=== PATIENT | male | born 2000 | race Caucasian/White ===

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

== ENCOUNTER 2022-11-09 14:13 | Emergency (ER) | payer MEDICAID, SELFPAY ==
--- NOTE | 2022-11-09 15:36 | ED_ITS ---
HPI - Back Pain/Injury General Stated Complaint: Back pain Time Seen by Provider: 11/09/22 15:37 Source: patient Mode of arrival: ambulatory Limitations: no limitations History of Present Illness HPI Narrative: 22-year-old male presents to the ER for evaluation of left lower back pain after he fell while playing basketball yesterday. He did not go to work today and states he needs a work note for missing work today. He states the pain is in the left lower back, does not radiate. It is worse with movement. No bruising to his back. No blood in his urine. He has not been taking the medications for pain. MD elicited complaint: back injury Pertinent past history: recent trauma Onset (ago): day(s) (1) Timing: intermittent Severity: moderate Quality: aching Location: left lower back Radiation: none Exacerbating factors: movement Relieving factors: none Context: fall Associated symptoms: denies other symptoms Work related injury: No Related Data Allergies Allergy/AdvReac Type Severity Reaction Status Date / Time No Known Allergies Allergy Verified 11/09/22 15:37 [No Known Allergies*] Review of Systems Review of Systems: Yes all other systems are reviewed and are negative Physical Exam Vital Signs: Appearance: Alert. Oriented X3. No acute distress. HEENT: normal inspection CVS: Normal heart rate and rhythm. Pulses normal. Respiratory: No respiratory distress. Skin: Skin warm and dry. Normal skin color. Normal skin turgor. No rashes. Back: Normal inspection, normal range of motion of the spine. Mild soft tissue tenderness of the middle lumbar area. No spinal tenderness Extremities: Normal inspection x4, no joint swelling, normal range of motion Neuro: Oriented X 3. No motor deficit. No sensory deficit. Medical Decision Making Medical Decision Making MDM Narrative: 22-year-old male presents to the ER for evaluation of left lower back pain after a fall during basketball yesterday. His exam is unremarkable. He is requesting a work note. He would like to back to work tomorrow. We discussed symptomatic care muscular back pain including rest, ice, NSAIDs. Stable for discharge home. Work note provided per request Differential Diagnosis Differential Diagnoses: The differential diagnosis associated with the presentation includes Inflammatory disorders, malignancy, trauma, osteoporosis, nerve root compression, radiculopathy, plexopathy, degenerative disc disease, disc herniation, spinal stenosis, sacroiliac joint dysfunction, facet joint injury, a nd less likely infection?like abscess or diskitis Tests considered The following testing was considered but not selected: Considered x-ray given trauma but he has no midline tenderness. Prescription Management I considered prescription management with: Pain Medication Critical Care Time Critical Care Time Critical Care Time: No Discharge Plan Discharge Clinical Impression: Back pain Patient Disposition: Home, Self-Care Instructions: Acute Low Back Pain (ED) Additional Instructions: Take Tylenol and Motrin as needed for pain. Use ice to the area several times per day to the area If you develop new or worsening symptoms call 911 or come back to the ER for further evaluation. Stand Alone Forms: Work/School Release
[2022-11-09 15:38] VITALS: BP 135/83; PULSE 64; RESP 19; TEMP 36.6; O2SAT 98; BMI 30.8
== END 2022-11-09 15:55 | disposition home or self-care (01) ==
LOC: HO.ED 15:50
PROVIDERS: Emergency Provider Emergency Medicine
DX: M54.50 Low back pain, unspecified (principal)
CPT/HCPCS: 99282

== ENCOUNTER 2023-05-11 04:40 | Emergency (ER) | payer MEDICAID, SELFPAY ==
[2023-05-11 04:55] VITALS: BP 147/68; PULSE 87; RESP 18; TEMP 36.8; O2SAT 98; BMI 32.2
--- NOTE | 2023-05-11 05:27 | ED_ITS ---
HPI - General Adult General Chief complaint: General Medical Stated complaint: cyst/abscess Time Seen by Provider: 05/11/23 05:27 Source: patient Mode of arrival: ambulatory Limitations: no limitations History of Present Illness HPI narrative: Patient no significant past medical history woke up 3 days ago with small redness on the inner part of the right thigh which has gradually increased in size with surrounding erythema and pain no fever no chills Related Data Previous Rx's Medication Instructions Recorded cephalexin 500 mg capsule 500 mg PO QID 10 days #40 caps 05/11/23 doxycycline hyclate 100 mg tablet 100 mg PO BID #20 tabs 05/11/23 ibuprofen 600 mg tablet 600 mg PO Q6H PRN fever or pain 05/11/23 #30 tabs Allergies Allergy/AdvReac Type Severity Reaction Status Date / Time No Known Allergies Allergy Verified 05/11/23 05:01 [No Known Allergies*] Review of Systems 2 Review of Systems: Yes all other systems are reviewed and are negative PMFSH Social History Social History Alcohol intake: never Smoked in Last 30 Days: No Use of substances other than those prescribed or required for medical reasons: No Advance Directives: No Advance Directives Information Provided: No Physical Exam ED Vital Signs: Vital Signs - 24 hr 05/11/23 04:55 05/11/23 06:00 Temperature 98.3 F Pulse Rate 87 63 Respiratory Rate 18 14 Blood Pressure 147/68 H 109/64 Pulse Oximetry 98 100 Oxygen Delivery Method Room Air Room Air BMI result Body Mass Index 32.2 Extrem Upper/lower leg/hip images: 2 1. Small indurated swelling about 2 cm in diameter with surrounding erythema Medications Administered Discontinued Medications Generic Name Dose Route Start Last Admin Trade Name Freq PRN Reason Stop Dose Admin Cephalexin HCl 500 mg 05/11/23 05:36 05/11/23 05:56 Cephalexin 500 Mg Capsule PO 05/11/23 05:37 500 mg ONCE ONE Administration Doxycycline Monohydrate 100 mg 05/11/23 05:36 05/11/23 05:56 Doxycycline Monohydrate 100 Mg Capsule PO 05/11/23 05:37 100 mg ONCE ONE Administration Lidocaine HCl 6 ml 05/11/23 05:36 05/11/23 05:57 Lidocaine Hcl 1 % Mpf 2 Ml Vial INFILTRATI 05/11/23 05:37 6 ml ONCE ONE Administration Procedures Abscess I/D Site: lower extremity Side (if applicable): right Local Anesthetic: lidocaine 1% Amount of anesthesia used (mL): 6 Technique: incised with blade Amount of fluid expressed (mL): 1 Sent for culture/gram staining?: Yes Irrigation: No Packing used?: none Discharge Plan Discharge Clinical Impression: Cellulitis and abscess of leg Patient Disposition: Home, Self-Care Instructions: Abscess Incision and Drainage (DC) Additional Instructions: Local care as advised Take antibiotic as prescribed Report to the ER/PCP if worsening of the redness or swelling Prescriptions: New cephalexin 500 mg capsule 500 mg PO QID 10 Days Qty: 40 0RF ibuprofen 600 mg tablet 600 mg PO Q6H PRN (Reason: fever or pain) Qty: 30 0RF doxycycline hyclate 100 mg tablet 100 mg PO BID Qty: 20 0RF Stand Alone Forms: Work/School Release Interventions: ED Discharge Assessment Last Done: 05/11/23 06:20 Discharge Date/Time: 05/11/23 06:21
[2023-05-11] MEDS: Doxycycline Monohydrate 100 MG CAPSULE PO (05:56)
[2023-05-11] MEDS: cephALEXin 500 MG CAPSULE PO (05:56)
[2023-05-11] MEDS: Lidocaine HCl 1 % MPF 2 ML VIAL 6 ML INFILTRATI (05:57)
[2023-05-11 06:00] VITALS: BP 109/64; PULSE 63; RESP 14; O2SAT 100
== END 2023-05-11 06:21 | disposition home or self-care (01) ==
PROVIDERS: Emergency Provider Internal Medicine
DX: L02.415 Cutaneous abscess of right lower limb (principal); Z79.899 Other long term (current) drug therapy
CPT/HCPCS: 10060; 87070; 87077; 87186; 87205; 99284

== ENCOUNTER 2023-06-18 18:53 | Emergency (ER) | payer MEDICAID, SELFPAY ==
[2023-06-18 19:44] VITALS: BP 129/67; PULSE 78; RESP 18; TEMP 36.6; O2SAT 98; BMI 31.7
--- NOTE | 2023-06-18 22:00 | ED.SKABFB ---
HPI - Skin/Abscess/Foreign Bdy General Chief complaint: Skin/Abscess/Foreign Body Stated complaint: cyst on right leg Time Seen by Provider: 06/18/23 21:34 Source: patient Mode of arrival: ambulatory Limitations: no limitations History of Present Illness HPI narrative: abscess R leg for a couple of days no fevers, n/v/d. complaint: abscess/boil Onset (ago): day(s) (2) Tetanus up to date: yes Location: RLE Severity: moderate Quality: aching, dull and constant Pain Consistency: constant Relieving factors: none Exacerbating factors: palpation Context: other (hx of recent boil) Associated symptoms: denies other symptoms Treatments prior to arrival: none Related Data Previous Rx's Medication Instructions Recorded cephalexin 500 mg capsule 500 mg PO QID 10 days #40 caps 05/11/23 doxycycline hyclate 100 mg tablet 100 mg PO BID #20 tabs 05/11/23 ibuprofen 600 mg tablet 600 mg PO Q6H PRN fever or pain 05/11/23 #30 tabs cephalexin 500 mg capsule 500 mg PO QID 7 days #28 caps 06/18/23 chlorhexidine gluconate 4 % 1 appl topical Q5M 2 doses #473 mL 06/18/23 topical liquid Allergies Allergy/AdvReac Type Severity Reaction Status Date / Time No Known Allergies Allergy Verified 05/11/23 05:01 [No Known Allergies*] Review of Systems Review of Systems: Constitutional : No Fever, No Chills Cardiovascular : No Chest Pain, No SOB Respiratory : No Cough, No Sputum Gastrointestinal : No Nausea, No Vomiting, No Diarrhea, No abdominal Pain Genitourinary : No Dysuria, No Hematuria Musculoskeletal : No joint pain, No Myalgias, No Joint Swelling Skin : No Skin Lesions, positive skin rash Neuro : No Weakness, No Numbness, No Headache All other systems reviewed and are negative PMFSH Past Medical History Attestation statement: The following information was validated with the patient. Source: old records reviewed Onset Date is defined in the Problem List Problems that require an onset date and time if occurred within 24 hrs of arrival to the ED Aortic Dissection and Rupture; Neurologic impairment; Cardiopulmonary Arrest; Endotracheal Intubation; Insertion or Replacement of Mechanical Circulatory Assist Device Medical History Abscess of skin or subcutaneous tissue Social History Social History (Updated 06/18/23 @ 22:14 by Mónica Pyle DO) Alcohol intake: never Patient Tobacco Use Status: Tobacco use Unknown Physical Exam Vital Signs: Vital Signs: Last Vital Signs Temp 97.9 F 06/18/23 19:44 Pulse 78 06/18/23 19:44 Resp 18 06/18/23 19:44 BP 129/67 06/18/23 19:44 Pulse Ox 98 06/18/23 19:44 O2 Del Method Room Air 06/18/23 19:44 BMI result Body Mass Index 31.7 Appearance: Alert. Oriented X3. No acute distress. Eyes: Pupils equal, round and reactive to light. ENT: Pharynx normal. Neck: Normal inspection. Neck supple. CVS: Normal heart rate and rhythm. Pulses normal. Respiratory: No respiratory distress. Breath sounds normal. Abdomen: Soft and nontender. Skin: Skin warm and dry. Normal skin color. Normal skin turgor. Extremities: No lower extremity edema. R thigh small 2cm fluctuance area mild surrounding erythema and edema no extension Neuro: Oriented X 3. No motor deficit. No sensory deficit. Medical Decision Making Medical Decision Making MDM Narrative: 23 yo male no PMH not a diabetic here with small fluctuance abscess R thigh - no systemic symptoms will emmanuel and start on cephalexin and body wash he is going to call and get PCP given recurrence of symptoms Differential Diagnosis Differential Diagnoses: The differential diagnosis associated with the presentation includes abscess, cellulitis Admission/Observation Consideration of admission/observation: Escalation of care including admission/observation considered not toxic, can be managed as outpatient Independent Historian Clinical information obtained from an independent historian. History obtained from or confirmed by: Spouse External Record Review External record reviewed: Inpatient record Prescription Management I considered prescription management with: Antibiotic Procedures Abscess I/D Site: lower extremity Side (if applicable): right Local Anesthetic: lidocaine 1% Amount of anesthesia used (mL): 2 Technique: incised with blade Amount of fluid expressed (mL): 1 Sent for culture/gram staining?: No Irrigation: No Packing used?: none Discharge Plan Discharge Clinical Impression: Abscess of skin or subcutaneous tissue Qualifiers: Site of cutaneous abscess: extremity Site of cutaneous abscess of extremity: lower extremity Laterality: right Qualified Code(s): L02.415 - Cutaneous abscess of right lower limb Patient Disposition: Home, Self-Care Instructions: Abscess (ED), Incision and Drainage (ED) Additional Instructions: monitor wound - change dressing in AM it will ooze and drain some blood. return for worsening swelling, redness, yellow drainage, fevers. On a cephalosporin?antibiotic, softer bowel movements are to be expected. Call your provider if you move your bowels more than 4 times a day, your bowel movements are almost all liquid, or you get a rash.?? Prescriptions: New cephalexin 500 mg capsule 500 mg PO QID 7 Days Qty: 28 0RF chlorhexidine gluconate 4 % liquid 1 appl topical Q5M Qty: 473 0RF No Action cephalexin 500 mg capsule 500 mg PO QID 10 Days Qty: 40 0RF ibuprofen 600 mg tablet 600 mg PO Q6H PRN (Reason: fever or pain) Qty: 30 0RF doxycycline hyclate 100 mg tablet 100 mg PO BID Qty: 20 0RF
== END 2023-06-18 22:10 | disposition home or self-care (01) ==
PROVIDERS: Emergency Provider Emergency Medicine
DX: L02.415 Cutaneous abscess of right lower limb (principal); M79.604 Pain in right leg
CPT/HCPCS: 10060; 99282; 99284

== ENCOUNTER 2023-07-18 10:39 | Emergency (ER) | payer SELFPAY ==
[2023-07-18 10:58] VITALS: BP 121/64; PULSE 73; RESP 18; TEMP 36.4; O2SAT 97; BMI 33.1
--- NOTE | 2023-07-18 12:54 | ED_ITS ---
HPI - Skin/Abscess/Foreign Bdy General Chief complaint: Skin/Abscess/Foreign Body Stated complaint: Cyst on leg Time Seen by Provider: 07/18/23 12:16 Source: patient, RN notes reviewed and old records reviewed Mode of arrival: ambulatory History of Present Illness HPI narrative: 23-year-old male no significant past medical history presenting to the ED complaining of painful red cyst to right groin/internal thigh x3 days. Denies fever/chills, drainage from area. Admits to similar symptoms in the past. MD complaint: abscess/boil Related Data Previous Rx's Medication Instructions Recorded cephalexin 500 mg capsule 500 mg PO QID 10 days #40 caps 05/11/23 doxycycline hyclate 100 mg tablet 100 mg PO BID #20 tabs 05/11/23 ibuprofen 600 mg tablet 600 mg PO Q6H PRN fever or pain 05/11/23 #30 tabs cephalexin 500 mg capsule 500 mg PO QID 7 days #28 caps 06/18/23 chlorhexidine gluconate 4 % 1 appl topical Q5M 2 doses #473 mL 06/18/23 topical liquid cephalexin 500 mg capsule 500 mg PO QID 7 days #28 caps 07/18/23 doxycycline hyclate 100 mg tablet 100 mg PO BID 7 days #14 tabs 07/18/23 Allergies Allergy/AdvReac Type Severity Reaction Status Date / Time No Known Allergies Allergy Verified 05/11/23 05:01 [No Known Allergies*] Review of Systems Review of Systems: Constitutional: No Fever, No Chills ENT/Mouth: No Ear Pain, No Nasal Congestion, No sore throat, No Rhinorrhea, No Swallowing Difficulty Cardiovascular: No Chest Pain, No SOB Respiratory: No Cough Gastrointestinal: No Nausea, No Vomiting, No Abdominal pain Musculoskeletal: No joint pain, No Myalgias, No Joint Swelling Skin: +Skin Lesions, No rash Neuro: No Weakness Yes all other systems are reviewed and are negative Constitutional: Constitutional: Reports as per [facility] Past Medical History Attestation statement: The following information was validated with the patient. Source: old records reviewed Medical History Abscess of skin or subcutaneous tissue Social History Social History Alcohol intake: never Patient Tobacco Use Status: Tobacco use Unknown Advance Directives: No Advance Directives Information Provided: No Physical Exam Vital Signs: Vital Signs: Last Vital Signs Temp 97.6 F 07/18/23 10:58 Pulse 73 07/18/23 10:58 Resp 18 07/18/23 10:58 BP 121/64 07/18/23 10:58 Pulse Ox 97 07/18/23 10:58 O2 Del Method Room Air 07/18/23 10:58 BMI result Body Mass Index 33.1 Const: General: cooperative, healthy appearing and no acute distress Orientation/consciousness: patient oriented x3 Limitations: no limitations HEENT: Head: Yes normal to inspection and Yes atraumatic Ears: hearing grossly normal bilaterally General nose exam: Normal external nose present Face and sinus: Yes normal facial exam Eyes: General: appearance normal, both eyes and all related structures EOM: EOMs intact bilaterally Neck: Neck: Yes normal visual inspection and Yes no meningeal signs Resp: Effort & Inspection: normal respiratory effort and no respiratory distress Cardio: Rate: regular rate Skin: Other: +indurated cyst to R inner thigh with celis rrounding erythema and tenderness. No fluctuance. No streaking. No point Rashes: no rashes Neuro: General: patient oriented x3, tone normal and no meningeal signs Cranial nerves: Yes CN's II-XII intact bilaterally Gait exam (Neuro): Normal gait present Extrem: General: Yes normal to inspection Medical Decision Making Medical Decision Making [facility] Narrative: 23-year-old male no significant past medical history presenting to the ED complaining of painful red cyst to right groin/internal thigh x3 days. On exam VSS, NAD, PE as above, concern for indurated abscess/folliculitis. No indication for I&D at this time Plan: PO abx, PCP f/u Please refer to course for remaining clinical decision making, interpretation of labs/imaging results, and discussions with consultants and/or family members. Differential Diagnosis Differential Diagnoses: The differential diagnosis associated with the presentation includes As above Lab Data [facility] Lab Attestation statement: I reviewed the patient's lab results. External Record Review External record reviewed: Inpatient record, Office record, Outpatient record, Prior outpatient labs, Prior outpatient radiology, Primary care record and Outside ED record Tests considered The following testing was considered but not selected: As above Prescription Management I considered prescription management with: Pain Medication and Antibiotic Discharge Plan Discharge Clinical Impression: Abscess, Cellulitis Patient Disposition: Home, Self-Care Instructions: Cellulitis (DC), Abscess (ED) Additional Instructions: Doxycycline and Keflex are antibiotics please take as prescribed Apply warm compresses If area becomes soft, becomes white pointing head or you have fever/chills return to the ED Prescriptions: New cephalexin 500 mg capsule 500 mg PO QID 7 Days Qty: 28 0RF doxycycline hyclate 100 mg tablet 100 mg PO BID 7 Days Qty: 14 0RF No Action cephalexin 500 mg capsule 500 mg PO QID 10 Days Qty: 40 0RF ibuprofen 600 mg tablet 600 mg PO Q6H PRN (Reason: fever or pain) Qty: 30 0RF doxycycline hyclate 100 mg tablet 100 mg PO BID Qty: 20 0RF cephalexin 500 mg capsule 500 mg PO QID 7 Days Qty: 28 0RF chlorhexidine gluconate 4 % liquid 1 appl topical Q5M Qty: 473 0RF Referrals: Physician,None [Primary Care Provider] - 3 days
== END 2023-07-18 13:48 | disposition home or self-care (01) ==
PROVIDERS: Emergency Provider Emergency Medicine
DX: L02.214 Cutaneous abscess of groin (principal); M79.651 Pain in right thigh
CPT/HCPCS: 99282; 99283

== ENCOUNTER 2023-07-19 13:35 | Emergency (ER) | payer OTHER, SELFPAY ==
[2023-07-19 14:00] VITALS: BP 136/76; PULSE 80; RESP 16; TEMP 36.6; O2SAT 98; BMI 32.9
--- NOTE | 2023-07-19 14:02 | ED.SKABFB ---
HPI - Skin/Abscess/Foreign Bdy General Chief complaint: Skin/Abscess/Foreign Body Stated complaint: ? Abscess L Leg Time Seen by Provider: 07/19/23 17:24 Source: patient, RN notes reviewed and old records reviewed Mode of arrival: ambulatory Limitations: no limitations History of Present Illness HPI narrative: 23-year-old male presents for evaluation of pain, redness to his right inner thigh. He was seen here yesterday and prescribed doxycycline cephalexin as the area did not seem amenable to incision and drainage at that time Patient reports taking the antibiotics yesterday but not today He reports the pain is worse and he is unable to walk or work due to the pain He is requesting incision and drainage at this time No fevers or chills Related Data Previous Rx's Medication Instructions Recorded cephalexin 500 mg capsule 500 mg PO QID 10 days #40 caps 05/11/23 doxycycline hyclate 100 mg tablet 100 mg PO BID #20 tabs 05/11/23 ibuprofen 600 mg tablet 600 mg PO Q6H PRN fever or pain 05/11/23 #30 tabs cephalexin 500 mg capsule 500 mg PO QID 7 days #28 caps 06/18/23 chlorhexidine gluconate 4 % 1 appl topical Q5M 2 doses #473 mL 06/18/23 topical liquid cephalexin 500 mg capsule 500 mg PO QID 7 days #28 caps 07/18/23 doxycycline hyclate 100 mg tablet 100 mg PO BID 7 days #14 tabs 07/18/23 tramadol 50 mg tablet 50 mg PO Q6H PRN pain #12 tabs 07/19/23 Allergies Allergy/AdvReac Type Severity Reaction Status Date / Time No Known Allergies Allergy Verified 05/11/23 05:01 [No Known Allergies*] Review of Systems Constitutional: Constitutional: Denies chills and Denies fever(s) Integumentary/Breasts: Skin/Breast: Reports erythema, Reports skin pain and Reports skin swelling PMFSH Past Medical History Medical History Abscess of skin or subcutaneous tissue Social History Social History Alcohol intake: never Patient Tobacco Use Status: Tobacco use Unknown Advance Directives: No Advance Directives Information Provided: No Physical Exam Vital Signs: Vital Signs: Last Vital Signs Temp 98 F 07/19/23 14:00 Pulse 80 07/19/23 14:00 Resp 16 07/19/23 14:00 BP 136/76 07/19/23 14:00 Pulse Ox 98 07/19/23 14:00 O2 Del Method Room Air 07/19/23 14:00 BMI result Body Mass Index 32.9 Skin: Other: Patient has an approximately 8 cm area diameter of erythema with tenderness palpation. There is a central area of induration, approximately 2-3 cm with some central skin breakdown. No purulent drainage, no clear fluctuance Course Course Course Narrative: This is a rapid medical exam. Deferred additional HPI, ROS, PE to primary provider. 23 yo male here with complaints of right thigh redness/swelling despite taking 2 doses of oral antibiotics. On exam the site is soft, fluctuatant, may be conducive to I&D. VSS Medications Administered Discontinued Medications Generic Name Dose Route Start Last Admin Trade Name Freq PRN Reason Stop Dose Admin Lidocaine/Epinephrine 20 ml 07/19/23 17:34 07/19/23 17:42 Lidocaine Hcl 2%/Epi 1:100,000 20 Ml Vial INFILTRATI 07/19/23 17:35 20 ml ONCE ONE Administration Medical Decision Making Medical Decision Making MDM Narrative: Patient's physical exam is most consistent with cellulitis and early abscess/phlegmon. I am not convinced that there is a significant pocket of purulence amenable to incision and drainage. However the patient is quite adamant he would like us to attempt incision and drainage. I feel is appropriate to attempt incision and drainage as this is the patient's 2nd visit in his many days for the same complaint Differential Diagnosis Differential Diagnoses: The differential diagnosis associated with the presentation includes Procedures Abscess I/D Site: lower extremity (Right inner thigh) Side (if applicable): right Local Anesthetic: lidocaine 1% and with epi Amount of anesthesia used (mL): 4 Technique: incised with blade Amount of fluid expressed (mL): 2 Sent for culture/gram staining?: No Irrigation: No (Forceps were used to disrupt any loculation) Packing used?: none Complications: pain Discharge Plan Discharge Clinical Impression: Cellulitis and abscess of right leg Patient Disposition: Home, Self-Care Instructions: Incision and Drainage (ED) Additional Instructions: Continue using your antibiotics as prescribed. Use warm compresses every 4 hours for 10 minutes Use Motrin or Tylenol for pain You may use tramadol for more severe breakthrough pain This may make you sleepy, did not drink alcohol or drive after taking it Return for new or worsening symptoms Prescriptions: New tramadol 50 mg tablet 50 mg PO Q6H PRN (Reason: pain) Qty: 12 0RF No Action cephalexin 500 mg capsule 500 mg PO QID 10 Days Qty: 40 0RF ibuprofen 600 mg tablet 600 mg PO Q6H PRN (Reason: fever or pain) Qty: 30 0RF doxycycline hyclate 100 mg tablet 100 mg PO BID Qty: 20 0RF cephalexin 500 mg capsule 500 mg PO QID 7 Days Qty: 28 0RF chlorhexidine gluconate 4 % liquid 1 appl topical Q5M Qty: 473 0RF cephalexin 500 mg capsule 500 mg PO QID 7 Days Qty: 28 0RF doxycycline hyclate 100 mg tablet 100 mg PO BID 7 Days Qty: 14 0RF
[2023-07-19] MEDS: Lidocaine HCl 2%/Epi 1:100,000 20 ML VIAL INFILTRATI (17:42)
== END 2023-07-19 18:27 | disposition home or self-care (01) ==
PROVIDERS: Emergency Provider Student in an Organized Health Care Education/Training Program
DX: L03.115 Cellulitis of right lower limb (principal); M79.651 Pain in right thigh
CPT/HCPCS: 10060; 99282; 99284

== ENCOUNTER 2023-08-23 02:32 | Emergency (ER) | payer SELFPAY ==
[2023-08-23 02:42] VITALS: BP 127/77; PULSE 85; RESP 16; TEMP 37.3; O2SAT 95; BMI 32.2
--- NOTE | 2023-08-23 06:31 | ED_ITS ---
HPI - Eye Problem General Chief complaint: Eye Problems Stated complaint: eye pain Time Seen by Provider: 08/23/23 05:31 Source: patient Mode of arrival: ambulatory History of Present Illness HPI Narrative: 23-year-old male who states that his left eye was swollen on Tuesday that he called out to work yesterday, he denies any trauma to the left eye and states that it has completely resolved. He denies any blurry vision/double vision or loss of vision. Related Data Previous Rx's Medication Instructions Recorded cephalexin 500 mg capsule 500 mg PO QID 10 days #40 caps 05/11/23 doxycycline hyclate 100 mg tablet 100 mg PO BID #20 tabs 05/11/23 ibuprofen 600 mg tablet 600 mg PO Q6H PRN fever or pain 05/11/23 #30 tabs cephalexin 500 mg capsule 500 mg PO QID 7 days #28 caps 06/18/23 chlorhexidine gluconate 4 % 1 appl topical Q5M 2 doses #473 mL 06/18/23 topical liquid cephalexin 500 mg capsule 500 mg PO QID 7 days #28 caps 07/18/23 doxycycline hyclate 100 mg tablet 100 mg PO BID 7 days #14 tabs 07/18/23 tramadol 50 mg tablet 50 mg PO Q6H PRN pain #12 tabs 07/19/23 Allergies Allergy/AdvReac Type Severity Reaction Status Date / Time No Known Allergies Allergy Verified 08/23/23 02:45 [No Known Allergies*] Review of Systems Review of Systems: Pertinent positives and negatives as stated in HPI PMFSH Past Medical History Source: nursing notes reviewed Medical History Abscess of skin or subcutaneous tissue Social History Social History Alcohol intake: never Patient Tobacco Use Status: Tobacco use Unknown Advance Directives: No Advance Directives Information Provided: No Physical Exam Vital Signs: Vital Signs: Last Vital Signs Temp 99.2 F 08/23/23 02:42 Pulse 85 08/23/23 02:42 Resp 16 08/23/23 02:42 BP 127/77 08/23/23 02:42 Pulse Ox 95 08/23/23 02:42 O2 Del Method Room Air 08/23/23 02:42 BMI result Body Mass Index 32.2 VITAL SIGNS: Reviewed. GENERAL: Well developed, well nourished, in no acute distress. HEAD: Normocephalic/atraumatic EYES: PERRLA, EOMI, mild bilateral conjunctival injection EARS: Ext canals without abnormality NOSE: Nares patent bilateral OROPHARYNX: no oral lesions noted, posterior pharynx clear NECK: Supple, no adenopathy LUNGS: Normal breath sounds. No adventitious sounds or accessory muscle use. SpO2<95> CARDIOVASCULAR: Regular rate and rhythm without noted murmurs ABDOMEN: Soft, non-tender, non-distended with bowel sounds. MUSCULOSKELETAL: No tenderness, deformities, or effusions noted on gross inspection. EXTREMITIES: No cyanosis, clubbing or edema. SKIN: Inspection of the skin reveals no rashes NEUROLOGIC: Alert and oriented x 4. Strength and sensation to light touch were grossly intact x 4. Medical Decision Making Medical Decision Making [facility] Narrative: 23-year-old male with history and clinical presentation of completely resolved swelling of the left upper eyelid, there is currently no evidence to suggest chalzion, stye, pinkeye. There is no trauma to suggest corneal abrasion and no clinical findings to suggest acute angle glaucoma. Patient is otherwise discharged Differential Diagnosis Differential Diagnoses: The differential diagnosis associated with the presentation includes Please see the discussion above Admission/Observation Consideration of admission/observation: Escalation of care including admission/observation considered Please see the discussion above Discharge Plan Discharge Clinical Impression: Eye swollen, left Patient Disposition: Home, Self-Care Instructions: Eye Pain (ED) Additional Instructions: Follow-up with your primary care doctor. Prescriptions: No Action cephalexin 500 mg capsule 500 mg PO QID 10 Days Qty: 40 0RF ibuprofen 600 mg tablet 600 mg PO Q6H PRN (Reason: fever or pain) Qty: 30 0RF doxycycline hyclate 100 mg tablet 100 mg PO BID Qty: 20 0RF cephalexin 500 mg capsule 500 mg PO QID 7 Days Qty: 28 0RF chlorhexidine gluconate 4 % liquid 1 appl topical Q5M Qty: 473 0RF cephalexin 500 mg capsule 500 mg PO QID 7 Days Qty: 28 0RF doxycycline hyclate 100 mg tablet 100 mg PO BID 7 Days Qty: 14 0RF tramadol 50 mg tablet 50 mg PO Q6H PRN (Reason: pain) Qty: 12 0RF
[2023-08-23 06:44] VITALS: BP 112/77; PULSE 72; RESP 16; O2SAT 98
== END 2023-08-23 06:48 | disposition home or self-care (01) ==
PROVIDERS: Emergency Provider Student in an Organized Health Care Education/Training Program
DX: H57.12 Ocular pain, left eye (principal)
CPT/HCPCS: 99282; 99283